=== PATIENT | female | born 1950 | race Caucasian/White ===

== ENCOUNTER 2019-11-30 11:01 | Outpatient (CLI) | payer MEDICARE, OTHER ==
--- NOTE | 2019-12-01 09:23 | Mammography Report ---
BILATERAL DIGITAL SCREENING MAMMOGRAM 3D/2D: 11/30/2019 CLINICAL: Routine screening. Comparison is made to exams dated: 12/20/2014 mammogram, 11/02/2012 mammogram, 06/13/2011 mammogram, and 05/03/2010 mammogram - [facility]. The tissue of both breasts is predominantly fatt y. There is a possible 1.4 cm mass in the right breast at 9 o'clock middle depth. No other significant masses, calcifications, or other findings are seen in either breast. IMPRESSION: INCOMPLETE: NEEDS ADDITIONAL IMAGING EVALUATION The possible 1.4 cm mass in the right breast is indeterminate. Additional views with possible ultras ound are recommended. This exam was interpreted at Station ID: [id number]. NOTE: For mammograms, a report in lay terms will be sent to the patient. Approximately 15% of breast malignancies will not be visualized mammographically. In the management of a palpable breast mass, a negative mammogram must not discourage biopsy of a clinically suspicious lesion. Electronically Signed By: Vivek jenkins/shamar:11/30/2019 12:05:54 ACR BI-RADS Category 0: Incomplete 3340F PARENCHYMAL PATTERN: (F) - The breast(s) demonstrate(s) diffuse fatty replacement. BI-RADS CATEGORY: (0) - 0 Mammo and [place] [id number] Immediate follow-up LATERALITY: (R)
== END 2019-11-30 11:02 | disposition home or self-care (01) ==
LOC: DI 11:01
DX: Z12.31 Encounter for screening mammogram for malignant neoplasm of breast (principal); R92.8 Other abnormal and inconclusive findings on diagnostic imaging of breast
CPT/HCPCS: 77063; 77067

== ENCOUNTER 2020-01-16 10:46 | Outpatient (CLI) | payer MEDICARE, OTHER ==
--- NOTE | 2020-01-18 08:13 | Mammography Report ---
UNILATERAL RIGHT DIGITAL DIAGNOSTIC MAMMOGRAM 3D/2D: 01/16/2020 CLINICAL: Patient returns for additional imaging over a suspected mass in the right breast. Comparison is made to exams dated: 11/30/2019 mammogram, 12/20/2014 mammogram, 11/02/2012 mammogram, 06/13 mammogram, and 05/03/2010 mammogram - [facility]. There are scattered fibrogla ndular elements in right breast. There is a 1.1 cm oval mass in the right breast at 9 o'clock middle depth. This is seen in additiona l views. No other significant masses or calcifications are seen in the breast. IMPRESSION: INCOMPLETE: NEEDS ADDITIONAL IMAGING EVALUATION The 1.1 cm oval mass in the right breast is indeterminate. A targeted ultrasound is recommended and will immediately follow. This exam was interpreted at Station ID: [id number]. NOTE: For mammograms, a report in lay terms will be sent to the patient. Approximately 15% of breast malignancies will not be visualized mammographically. In the management of a palpable breast mass, a negative mammogram must not discourage biopsy of a clinically suspicious lesion. Electronically Signed By: Kalia Lopez M.D. slc/:01/16/2020 11:54:33 ACR BI-RADS Category 0: Incomplete 3340F PARENCHYMAL PATTERN: (A) - The breast(s) demonstrate(s) scattered fibroglandular densities. BI-RADS CATEGORY: (0) - 0 Ultrasound [id number] Immediate follow-up LATERALITY: (B)
--- NOTE | 2020-01-18 08:15 | Ultrasound Report ---
LIMITED ULTRASOUND OF RIGHT BREAST: 01/16/2020 CLINICAL: Patient returns for additional imaging over a suspected mass in the right breast. Comparison is made to exams dated: 01/16/2020 mammogram, 11/30/2019 mammogram, 12/20/2014 mammogram, 11/02 mammogram, 06/13/2011 mammogram, and 05/03/2010 mammogram - [facility]. Color flow and real-time ultrasound of the right breast 7 o'clock region were performed. Mar scale images of the real-time examination were reviewed. There is a 0.8 cm x 0.7 cm x 0.6 cm oval cyst with a septated internal wall in the right breast at 10 o'clock middle depth 2 cm from the nipple. This oval cyst is hypoechoic with a well-defined boundar y. This correlates with mammography findings. Color flow imaging demonstrates that there is no vasc ularity present. IMPRESSION: PROBABLY BENIGN The 0.8 cm oval cyst in the right breast is consistent with a complicated cyst and is probably benign . A follow-up mammogram and an ultrasound in 6 months is recommended to demonstrate stability. Exam findings conveyed to the patient. This exam was interpreted at Station ID: [id number]. Electronically Signed By: Kalia Lopez M.D. slc/:01/16/2020 13:40:30 Ultrasound BI-RADS: 3 Probably benign BI-RADS CATEGORY: (3) - 3 Mammo and [place] [id number] 6 month follow-up LATERALITY: (B)
== END 2020-01-16 10:47 | disposition home or self-care (01) ==
LOC: DI 10:46
PROVIDERS: ATTEND Family Medicine
DX: N60.01 Solitary cyst of right breast (principal)
CPT/HCPCS: 76642